=== PATIENT | female | born 1960 | race Hispanic/Latino ===

== ENCOUNTER 2017-05-06 12:41 | Outpatient (CLI) | payer BC ==
--- NOTE | 2017-05-06 14:23 | MRI ---
EXAM: THORACIC SPINE MRI WITHOUT CONTRAST: HISTORY: Thoracic radiculopathy. Increased low back pain. Bilateral arm weakness. The patient fell a year a go. COMPARISON: None. TECHNIQUE: Thoracic spine MRI is performed without intravenous Gadolinium administration. Multisequential, mult iplanar imaging is performed. FINDINGS: There is appropriate T1 marrow signal intensity of the thoracic vertebrae. Vertebral body height is maintained. There is no fracture. There is osseous hemangioma at T4. No significant STIR hyperinte nsity to suggest edema or ligamentous injury. There is appropriate signal intensity in visualized mediastinal structures and lung parenchyma. Visu alized solid organs are unremarkable. Conus medullaris terminates at the superior end plate of L1. The thoracic aorta has an overall normal size and signal intensity. Throughout the thoracic spine, there is no significant central canal stenosis. The neural foramina a re patent. IMPRESSION: No significant central canal stenosis. Neural foramen are patent. POS: [facility]
--- NOTE | 2017-05-06 14:30 | MRI ---
LUMBAR SPINE MRI WITHOUT CONTRAST: Date: 05/06/17 COMPARISON: 04/28/17. 01/26/17. HISTORY: Lumbar radiculopathy. Increasing back pain. Weakness. TECHNIQUE: Lumbar spine MRI is performed without intravenous Gadolinium administration. Multisequential, multipl zoë imaging is performed. FINDINGS: There is appropriate T1 marrow signal intensity of the lumbar vertebra. Lumbar spine vertebral body h eight is maintained. There is no fracture. There is intrinsic T1 and T2 hyperintensity involving the T12 and L1 vertebral bodies, compatible with osseous hemangiomas. No significant STIR hyperintensity to suggest edema or ligamentous injury. Symmetric attenuation of the psoas muscles. Conus medullaris terminates at the superior end late of L1. Appropriate signal intensity of the visualized solid organs. T12-L1: Adequate disc hydration. No significant central canal stenosis. Foramina are patent. L1-L2: Adequate disc hydration. No significant central canal stenosis. Foramina are patent. L2-L3: Adequate disc hydration. No significant central canal stenosis. Neural foramina are patent. L3-L4: Minimal disc desiccation. Minimal loss of disc space height. There is a generalized disc bulge. Minim ally narrowing of left subarticular zone. Disc material abuts but does not obscure the traversing lef t L4 nerve root. Right subarticular zone is unremarkable. There is no significant central canal steno sis. Right neural foramen is patent. Moderate left foraminal narrowing predominantly due to disc mate rial. L4-L5: Adequate disc hydration. No significant central canal stenosis. Neural foramina are patent. L5-S1: No significant posterior disc abnormality. No significant central canal stenosis. Neural foramina are patent. IMPRESSION: Degenerative changes of lumbar spine as detailed above. When compared to the prior examination, there is essentially stable left foraminal narrowing at L3-L4. POS: [facility]
== END 2017-05-06 12:42 | disposition home or self-care (01) ==
LOC: TBSIIMAG 12:41
PROVIDERS: ATTEND Neurological Surgery
DX: M47.26 Other spondylosis with radiculopathy, lumbar region (principal); M54.14 Radiculopathy, thoracic region; M99.53 Intervertebral disc stenosis of neural canal of lumbar region
CPT/HCPCS: 72146; 72148

== ENCOUNTER 2017-05-31 09:00 | Outpatient (CLI) | payer BC ==
[2017-05-31 14:54] LABS: Hematocrit 40.8 % (36.0-47.0); Mean Platelet Volume 9.3 fL (7.4-10.4); Red Blood Cell (RBC) Count 4.43 mill/uL (4.20-5.40); White Blood Cell (WBC) Count 5.6 thou/uL (4.8-10.8)
[2017-05-31 15:10] LABS: Anion Gap 7 mmol/L (10-20); BUN (Urea Nitrogen) 15 mg/dL (9.8-20.1); Calc. Creatinine Clearance 0 mL/min (70-130); Calcium 9.4 mg/dL (7.8-10.44); Carbon Dioxide 30 mmol/L (22-29); Chloride 105 mmol/L (98-107); Estimated GFR-MDRD Greater than 90
== END 2017-05-31 09:01 | disposition home or self-care (01) ==
LOC: LABBT 09:00
PROVIDERS: ATTEND Neurological Surgery
DX: Z01.818 Encounter for other preprocedural examination (principal); M54.16 Radiculopathy, lumbar region
CPT/HCPCS: 80048; 85027; 93005; 93010

== ENCOUNTER 2017-06-06 06:49 | Day surgery (SDC) | payer BC ==
[2017-05-31 11:33] VITALS: BMI 33.6
[2017-06-06] MEDS ORDERED: CEFAZOLIN/Water 2 GM/20 ML SYRINGE ONE (07:39)
[2017-06-06] MEDS ORDERED: Midazolam HCl 2 mg/2 ml Vial ONE ×2 (08:19→08:43)
[2017-06-06] MEDS ORDERED: Fentanyl 100 MCG/2 ML VIAL ONE ×3 (08:43→10:32)
[2017-06-06] MEDS ORDERED: Sodium Chloride 0.9% 10 ML ONE (08:44)
[2017-06-06] MEDS ORDERED: Propofol 200 MG/20 ML VIAL ONE (09:00)
[2017-06-06] MEDS ORDERED: PHENYLEPHRINE-NS 100 MCG/ML 10 ML SYRINGE ONE (09:00)
[2017-06-06] MEDS ORDERED: ePHEDrine/0.9% NaCl/PF SYRINGE 50 mg/10 ml ONE (09:00)
[2017-06-06] MEDS ORDERED: Lidocaine 1% PF 5 ML VIAL ONE (09:00)
[2017-06-06] MEDS ORDERED: Glycopyrrolate 0.2 MG/ML 5 ML SYRINGE ONE (09:00)
[2017-06-06] MEDS ORDERED: Ondansetron HCl/PF 4 MG/2 ML Vial ONE (09:00)
[2017-06-06] MEDS ORDERED: Dexamethasone 20 MG/5 ML VIAL ONE (09:00)
--- NOTE | 2017-06-06 10:16 | OP ---
DATE OF PROCEDURE: 06/06/2017 SURGEON: Miguel Esquivel M.D. BODY ARTIST: Rafat Tobias PA-C PROCEDURES: Left L3-4 laminectomy, facetectomy, foraminotomy, interbody arthrodesis, intravertebral biomechanical device, local morselized autograft, demineralized bone matrix, posterior lateral arthro desis and pedicle screw instrumentation L3-4. PROCEDURE IN DETAIL: The patient was brought into the operating room, intubated. She was rolled in the prone position on gel-filled chest rolls. Incision made exposing L3-4 and our level was confirme d by x-ray. We performed complete left L3-4 laminectomy, facetectomy, and foraminotomy and completel y decompressed left L3 and left L4. The disc itself was incised and debrided and a complete discecto my was performed. The bony endplates were decorticated for the purpose of arthrodesis and appropriat daniel sized intravertebral biomechanical PEEK device was brought into the field, filled with deminerali zed bone matrix and local morselized autograft, and tapped into place securely at L3-4. Next, pedicl e screws were placed at left L3 and left L4 using lateral fluoroscopic guidance and the positioning w as confirmed with rotational x-ray. A haja was secured between the screws, connected by nuts which we re final tightened. The wound was then extensively irrigated, immaculate hemostasis was secured. Va ncomycin powder was applied and the wound was closed in anatomic layers.
[2017-06-06] MEDS ORDERED: HYDROmorphone 0.5 MG/0.5 ML SYRINGE ONE (11:12)
[2017-06-06] MEDS ORDERED: Morphine 4 MG/ML VIAL ONE (11:52)
[2017-06-06] MEDS ORDERED: HYDROcodone/Acetaminophen 5/325 mg Tablet ONE (14:38)
== END 2017-06-06 16:53 | disposition home or self-care (01) ==
LOC: SDC 06:49
PROVIDERS: ATTEND Neurological Surgery
PROC: 0SG00AJ Fusion of Lumbar Vertebral Joint with Interbody Fusion Device, Posterior Approach, Anterior Column, Open Approach (ICD-10-PCS; principal; 2017-06-06)
DX: M54.16 Radiculopathy, lumbar region (principal); Z79.899 Other long term (current) drug therapy; Z98.51 Tubal ligation status; Z90.710 Acquired absence of both cervix and uterus; Z90.49 Acquired absence of other specified parts of digestive tract; Z98.890 Other specified postprocedural states
CPT/HCPCS: 76001; 96374; A4216; C1713; C1768; J1100; J1170; J2001; J2250; J2270; J2405; J2704; J3010; J3370; J3490

== ENCOUNTER 2017-06-13 07:45 | Emergency (ER) | payer BC ==
[2017-06-13] MEDS ORDERED: Morphine 4 MG/ML VIAL ONE (08:37)
[2017-06-13] MEDS ORDERED: Lorazepam 2 MG/ML VIAL ONE (08:37)
== END 2017-06-13 09:12 | disposition home or self-care (01) ==
LOC: ERS 07:45
DX: G89.18 Other acute postprocedural pain (principal); M54.9 Dorsalgia, unspecified; K21.9 Gastro-esophageal reflux disease without esophagitis
CPT/HCPCS: 96372; J2060; J2270

== ENCOUNTER 2017-06-23 10:32 | Outpatient (CLI) | payer BC ==
--- NOTE | 2017-06-23 11:01 | RAD ---
TWO VIEWS LUMBAR SPINE: Date: 06-23-17 Comparison: 08-31-16 History: Left leg pain and numbness, lumbar radiculopathy, left leg pain from knee down. FINDINGS: Five lumbar type vertebral bodies are present with intact pedicles on frontal imaging. There are post -operative clips noted in the right upper quadrant. There is a left sided pedicle screw at the L3 and L4 level with a vertically oriented interlocking ro d. There is an intervertebral disc device at L3-4. There is anterior osteophyte formation at L3-4 as well. There is no anterolisthesis or retrolisthesis. There is mild facet hypertrophy at L3-4 and L4-5 . No acute osseous abnormality. IMPRESSION: Post-operative and degenerative change noted within the lumbar spine as detailed above. POS: [facility]
== END 2017-06-23 10:33 | disposition home or self-care (01) ==
LOC: TBSIIMAG 10:32
PROVIDERS: ATTEND Neurological Surgery
DX: M47.26 Other spondylosis with radiculopathy, lumbar region (principal); Z98.890 Other specified postprocedural states
CPT/HCPCS: 72100

== ENCOUNTER 2017-08-02 15:38 | Outpatient (CLI) | payer BC ==
--- NOTE | 2017-08-02 16:16 | RAD ---
LUMBAR SPINE TWO VIEWS: History: Lumbar radiculopathy. Comparison: 06-23-17 FINDINGS: Posterior spinal fusion at L3-4. Disc spaces are unchanged. No acute fracture, no malalignment, no listhesis. IMPRESSION: Unchanged examination. No evidence for hardware failure. POS: [facility]
== END 2017-08-02 15:39 | disposition home or self-care (01) ==
LOC: TBSIIMAG 15:38
PROVIDERS: ATTEND Neurological Surgery
DX: M54.16 Radiculopathy, lumbar region (principal)
CPT/HCPCS: 72100

== ENCOUNTER 2017-10-06 10:34 | Outpatient (CLI) | payer BC ==
--- NOTE | 2017-10-06 12:34 | RAD ---
LUMBAR SPINE 2 VIEWS: HISTORY: A 57-year-old female with a history of other intervertebral disk disease lumbar region, low back pain . COMPARISON: 08/02/17. FINDINGS: Left-sided pedicle screws are noted at L3-L4 with intradiskal prosthesis. No evidence for significan t malalignment. Stable from prior 08/02/17 study. IMPRESSION: Stable left-sided pedicle screws at L3-L4 with intradiskal prosthesis. No significant malalignment. Unchanged from prior exam. POS: [facility]
== END 2017-10-06 10:35 | disposition home or self-care (01) ==
LOC: TBSIIMAG 10:34
PROVIDERS: ATTEND Neurological Surgery
DX: M51.36 Other intervertebral disc degeneration, lumbar region (principal); Z98.1 Arthrodesis status
CPT/HCPCS: 72100

== ENCOUNTER 2017-10-27 10:23 | Outpatient (CLI) | payer BC ==
--- NOTE | 2017-10-27 14:01 | RAD ---
3 VIEWS LUMBAR SPINE: Date: 10/27/17 COMPARISON: 10/06/17. HISTORY: New onset left-sided pain. Surgery in May. FINDINGS: There are five lumbar-type vertebral bodies. In the neutral position. No significant spondylolisthesi s. There is a unilateral left-sided transpedicular screw at L3 and L4, without perihardware lucency. Disc prosthesis at L3-L4 level. Upon extension and flexion, there is normal translational motion. IMPRESSION: Uncomplicated lumbar fusion changes as above. No significant spondylolisthesis. POS: [facility]
--- NOTE | 2017-10-27 15:22 | MRI ---
MRI LUMBAR SPINE WIT AND WITHOUT CONTRAST: HISTORY: Intervertebral disk degeneration. New-onset left-sided lower back pain. Status post surgery. COMPARISON: None. TECHNIQUE: MRI of the lumbar spine is performed without intravenous Gadolinium administration. Multisequential, multiplanar imaging is performed. FINDINGS: Appropriate T1 marrow signal intensity of the lumbar vertebrae. Vertebral body height is maintained. No fracture. No significant STIR hyperintensity to suggest vertebral body edema or ligamentous inj ury. No abnormal enhancement of the vertebral bodies. No abnormal enhancement within the thecal sac including the cauda equina and conus medullaris. Unilateral left transpedicular screw at L3 and L4 is identified. There is associated metallic suscep tibility artifact. There is a prosthesis at the L3-L4 disk space. Symmetric signal intensity of the psoas muscles. Appropriate signal intensity of the visualized tom d organs. Conus medullaris terminates at the T12-L1 disk space. T12-L1: Adequate disk hydration. No significant central canal stenosis or foraminal narrowing. L1-L2: Adequate disk hydration. No significant central canal stenosis or foraminal narrowing. L2-L3: Appropriate disk hydration. No significant posterior disk abnormality. No significant centr al canal stenosis. Neural foramen are patent. L3-L4: There is a disk prosthesis. There does appear to be some residual disk material. There appe ars to be enhancing scar tissue along the left lateral aspect of the disk, extending into the left ne ural foramen and abutting the foraminal left L3 nerve root. No significant stenosis of the thecal sa c. Right neural foramen is patent. Overall, there is moderate left foraminal narrowing presumed to be due to scar tissue. L4-L5: Adequate disk hydration. A generalized disk bulge, ligamentum flavum thickening, and facet h ypertrophy do not cause any significant central canal stenosis. Mild right and left foraminal narrow ing. L5-S1: Adequate disk hydration. No significant central canal stenosis. Mild bilateral foraminal na rrowing. IMPRESSION: Postsurgical changes of the lumbar spine as above. No significant central canal stenosis. There yissel ears to be enhancing scar tissue along the left aspect of the disk at L3-L4. Enhancing scar tissue a buts the foraminal left L3 nerve roots. POS: [facility]
== END 2017-10-27 10:24 | disposition home or self-care (01) ==
LOC: TBSIIMAG 10:23
PROVIDERS: ATTEND Neurological Surgery
DX: M51.36 Other intervertebral disc degeneration, lumbar region (principal); Z98.1 Arthrodesis status; Z98.890 Other specified postprocedural states
CPT/HCPCS: 72100; 72158; 82565

== ENCOUNTER 2017-11-10 10:41 | Outpatient (CLI) | payer BC ==
--- NOTE | 2017-11-10 12:56 | CT ---
LUMBAR SPINE CT WITHOUT CONTRAST: Date: 11-10-17 Comparison: None. History: Low back pain, prior lumbar surgery. Technique: Serial axial CT imaging obtained at 3 mm intervals through the lumbar spine without contra st. Coronal and sagittal reformatted imaging obtained. FINDINGS: Evaluation for central canal and/or neural foraminal stenosis is limited on routine CT. Vertebral body height and alignment appears normal on the sagittal reformatted imaging. Left sided pedicle screws are present at L3 and L4 with a vertically oriented interlocking haja. There is an intervertebral disc device at L3-4 as well. T12-L1: No osseous cause of significant central canal or neural foraminal stenosis. L1-2: No osseous cause of significant central canal or neural foraminal stenosis. L2-3: Mild bilateral facet hypertrophy with no osseous cause of significant central canal or neural f oraminal stenosis. L3-4: Post-operative hardware is present as detailed above. The patient appears status post left side d facetectomy. There is no osseous cause of significant central canal or right neural foraminal stenosis. There is s oft tissue density in the left neural foramen, best seen on sagittal image 48 which could be related to scar and/or disc material causing associated left neural foraminal stenosis. L4-5: No osseous cause of significant central canal or neural foraminal stenosis. There is a rim calcified soft tissue density which measures 1.6 cm in AP dimension and 1.9 cm in alegria sverse dimension. It abuts the right aspect of the transverse process of the L3 vertebral body and wa s not present on the 08-31-16 pre-operative CT examination. Perhaps this is related to bone graft mate rial. Clinical correlation is essential. L5-S1: No osseous cause of significant central or neural foraminal stenosis. No acute fracture or dislocation. Imaged retroperitoneal structures demonstrate no acute findings. IMPRESSION: Post-operative and degenerative changes as described above. Probable neural foraminal stenosis on the left. Rim calcified soft tissue density to the right of the L3 spinous process may be related to bon e graft material which is partially calcified. Clinical correlation is required. POS: [facility]
== END 2017-11-10 10:42 | disposition home or self-care (01) ==
LOC: TBSIIMAG 10:41
PROVIDERS: ATTEND Neurological Surgery
DX: M51.36 Other intervertebral disc degeneration, lumbar region (principal); Z98.890 Other specified postprocedural states
CPT/HCPCS: 72131

== ENCOUNTER 2018-02-15 22:43 | Emergency (ER) | payer BC ==
[2018-02-15] MEDS ORDERED: Fluorescein Opthalmic Strip ONE (23:42)
[2018-02-15] MEDS ORDERED: Proparacaine 0.5% Opth 15 ML BOT ONE (23:42)
== END 2018-02-16 00:10 | disposition home or self-care (01) ==
LOC: ERS 22:43
DX: H11.32 Conjunctival hemorrhage, left eye (principal); K21.9 Gastro-esophageal reflux disease without esophagitis; I10 Essential (primary) hypertension; F41.9 Anxiety disorder, unspecified; Z79.899 Other long term (current) drug therapy
CPT/HCPCS: 99282

== ENCOUNTER → 2018-02-27 | Day surgery (SDC) | payer BC ==
[2018-02-24 10:50] VITALS: BMI 30.6
[2018-02-27 10:32] VITALS: TEMP 97.5
--- NOTE | 2018-02-27 12:06 | CT ---
POST MYELOGRAM LUMBAR SPINE CT: Date: 02/27/18 HISTORY: Low back pain, radiating down right leg, into the heel and left groin. COMPARISON: None. CORRELATION: Noncontrast lumbar spine CT dated 11/14/17, lumbar spine MRI dated 10/27/17. TECHNIQUE: Post myelogram lumbar spine CT is performed in the axial plane. Sagittal and coronal reformatted imag es are submitted for interpretation. FINDINGS: There are unilateral left-sided transpedicular screw at L3 and L4. No perihardware lucency. Disc pros thesis at L3-L4. There are five lumbar-type vertebral bodies. Vertebral body height is maintained. No fracture. No spondylolisthesis or spondylolysis. Surgically absent gallbladder. Heterogeneous appearing right kidney. Findings are similar to previous examination. Correlation made with stone protocol CT of 08/31/16 does not demonstrate any appreciabl e change. No retroperitoneal mass, lymphadenopathy, or hematoma. Symmetric attenuation of psoas muscl es. Conus medullaris terminates at the mid L1 level. T11-T12 and T12-L1: No significant central canal stenosis or neural foraminal narrowing. L1-L2: No significant central canal stenosis or neural foraminal narrowing. L2-L3: No significant central canal stenosis or neural foraminal narrowing. L3-L4; There is a disc prosthesis. No significant central canal stenosis. Right neural foramen is patent. Th ere is partial resection of the superior left facet at L4. There is moderate central canal stenosis w ith abnormal soft tissue attenuation noted in the left neural foramen. L4-L5: Minimal generalized disc bulge. No significant central canal stenosis. Neural foramina are patent. L5-S1: No significant central canal stenosis. Patient neural foramina bilaterally. Partially calcified density to the right of the spinous process at L3 and L4 are likely representing bone graft material. IMPRESSION: Postsurgical changes as above. Moderate left foraminal narrowing at L3-L4 with soft tissue density li nicholas representing postsurgical scar tissue and/or disc material. POS: [facility]
--- NOTE | 2018-02-27 12:10 | RAD ---
LUMBAR MYELOGRAM: Date: 02/27/18 HISTORY: Lumbar radiculopathy. EXPOSURE: 71.1 mGy*cm^2. 0.4 minutes. 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 There is a disc prosthesis at L3-L4. Vertebral body height is maintained. No fracture. No sig nificant spondylolisthesis or spondylolysis. There are five lumbar-type vertebral bodies. Successful lumbar puncture for intrathecal contrast administration. Total of 9 mL of Isovue M200 cont rast was administered intrathecally. The patient tolerated the procedure well. No immediate or postpr ocedure complications. TECHNIQUE: Consent obtained to perform a lumbar puncture under fluoroscopic guidance for lumbar myelogram. The L 4-L5 level was deemed appropriate. Skin was prepped and draped in the sterile fashion. 1% lidocaine, buffered with sodium bicarbonate, was used for local anesthesia. Under fluoroscopic guidance, a 22 ga uge spinal needle was advanced into the CSF space. Inner stylette was removed. Prompt flow of clear C SF into the hub of the needle. Via a short tubing catheter, a total of 9 mL Isovue M200 contrast was administered intrathecally. The patient tolerated the procedure well. No immediate or postprocedure complication. IMPRESSION: Successful lumbar myelogram. POS: [facility]
== END ==
LOC: RAD 09:37
PROVIDERS: ATTEND Neurological Surgery
PROC: B02B1ZZ Computerized Tomography (CT Scan) of Spinal Cord using Low Osmolar Contrast (ICD-10-PCS; principal; 2018-02-27)
DX: M54.16 Radiculopathy, lumbar region (principal); M48.061 Spinal stenosis, lumbar region without neurogenic claudication; Z79.899 Other long term (current) drug therapy; Z98.1 Arthrodesis status
CPT/HCPCS: 62304; 72132

== ENCOUNTER 2019-04-09 09:46 | Outpatient (CLI) | payer BC ==
--- NOTE | 2019-04-13 14:28 | MMO ---
Bilateral MAMMO Bilat Screen [facility]. CLINICAL HISTORY: Patient is 58 years old and is seen for screening. The patient has no family history of breast cancer. The patient has no personal history of cancer. The patient has a history of left Excisional Biopsy in Early 40's - benign - scar not visible. VIEWS: The views performed were: bilateral craniocaudal with tomosynthesis and bilateral mediolateral oblique with tomosynthesis. FILMS COMPARED: The present examination has been compared to prior imaging studies performed at 07/09/2014, and at [facility] on 10/14/2015. This study has been interpreted with the assistance of computer-aided detection. MAMMOGRAM FINDINGS: There are scattered fibroglandular densities. There are no suspicious masses, suspicious calcifications, or new areas of architectural distortion. IMPRESSION: THERE IS NO MAMMOGRAPHIC EVIDENCE OF MALIGNANCY. A ROUTINE FOLLOW-UP MAMMOGRAM IN 1 YEAR IS RECOMMENDED. THE RESULTS OF THIS EXAM WERE SENT TO THE PATIENT. ACR BI-RADS Category 1 - Negative MAMMOGRAPHY NOTE: 1. A negative mammogram report should not delay a biopsy if a dominant of clinically suspicious mass is present. 2. Approximately 10% to 15% of breast cancers are not detected by mammography. 3. Adenosis and dense breasts may obscure an underlying neoplasm. Reported by: ADAM ARIAS MD Electonically Signed: [id number]
== END 2019-04-09 09:47 | disposition home or self-care (01) ==
LOC: BICMAMMO 09:46
PROVIDERS: ATTEND Family Medicine Sports Medicine
DX: Z12.31 Encounter for screening mammogram for malignant neoplasm of breast (principal); Z91.89 Other specified personal risk factors, not elsewhere classified
CPT/HCPCS: 77063; 77067

== ENCOUNTER 2019-12-14 15:24 | Outpatient (CLI) | payer BC ==
--- NOTE | 2019-12-14 15:58 | ULT ---
Exam: Left soft tissue neck ultrasound HISTORY: Mass COMPARISON: none FINDINGS: In the left neck, 1.6 cm lymph node is noted in the region of pain. No solid masses. IMPRESSION: Left neck lymph node. Better interrogation with postcontrast soft tissue neck CT is recom mended.
== END 2019-12-14 15:25 | disposition home or self-care (01) ==
LOC: BICULT 15:24
PROVIDERS: ATTEND Family Medicine Sports Medicine
DX: R59.0 Localized enlarged lymph nodes (principal)
CPT/HCPCS: 76536

== ENCOUNTER 2019-12-28 12:48 | Outpatient (CLI) | payer BC ==
[2019-12-28] MEDS ORDERED: Iopamidol-370 76% 500 ML 1 ML ONE (14:36)
--- NOTE | 2019-12-28 14:59 | CT ---
SOFT TISSUE NECK CT WITHOUT CONTRAST: 12/28/19 COMPARISON: None. CORRELATION: Ultrasound of the neck 12/14/19. HISTORY: Left neck mass. Region of concern has been marked. FINDINGS: The visualized brain parenchyma has appropriate enhancement. Appropriate attenuation of the visualized paraspinal muscles. Bilateral ocular lenses are appropriately located. Both globes are intact. Retrobulbar fat is preserv ed. Symmetric attenuation of the optic nerves and ocular rectus muscles. Limited evaluation of the oral cavity due to dental amalgam artifact. No obvious masses. Midline fat ty raphae of the tongue is preserved. The supraglottic, glottic, and subglottic larynx have appropria te attenuation. Epiglottis has a normal caliber. Pre-epiglottic fat is preserved. Symmetric attenuation of the parotid glands and submandibular glands. Hypodensity in the left thyroid lobe, measuring 2.2 x 1.8 cm. Isodense to slightly hypodense focus in the anterior right thyroid lob e measures 0.8 cm. Symmetric attenuation of the paraspinal muscles. Grossly, the great vessels of the neck are patent. No evidence of lymphadenopathy by size criteria. Previously suggested lymph nodes on ultrasound are l ess evident on the current examination. There is an upper normal right level II lymph node measuring 1.1 x 0.6 cm and an upper normal left level II lymph node measuring 1.1 x 0.8 cm. Additional nonenlar ged bilateral level V lymph nodes are noted. Cervical spine vertebral body heights are maintained. There is no fracture. There are varying degrees of central canal stenosis and foraminal narrowing on the basis of degenerative change. No acute abnormality in the upper mediastinum or lung apices. At the level of palpable marker, no solid or cystic masses. No lymphadenopathy. IMPRESSION: 1. No abnormality at the level of palpable marker along the left aspect of the neck. 2. No evidence of lymphadenopathy by size criteria. There is upper normal right level II and left lev el II lymph nodes. These lymph nodes measure 1.1 x 0.6 cm and 1.1 x 0.8 cm respectively. 3. Hypodense nodule in the right thyroid lobe, incompletely evaluated. Thyroid ultrasound is recommen ded. POS: [facility]
== END 2019-12-28 12:49 | disposition home or self-care (01) ==
LOC: BICCT 12:48
PROVIDERS: ATTEND Otolaryngology Plastic Surgery within the Head & Neck
DX: R22.1 Localized swelling, mass and lump, neck (principal); E04.1 Nontoxic single thyroid nodule
CPT/HCPCS: 70491; Q9967

== ENCOUNTER 2020-08-14 10:44 | Outpatient (CLI) | payer BC ==
--- NOTE | 2020-08-14 13:16 | ULT ---
Thyroid ultrasound: 08/14/2020 COMPARISON: None HISTORY: Thyroid nodule TECHNIQUE: Multiplanar grayscale sonographic imaging of the thyroid gland obtained. FINDINGS: The isthmus measures 4 mm, the right lobe measures 4.6 x 1.5 x 2.0 cm and the left lobe bee sures 4.2 x 1.7 x 1.4 cm. Three nodules are present within the right lobe. This includes a mildly complex cyst measuring 6 x 4 mm superiorly, a 3 mm hypoechoic lesion laterally within the inferior right lobe, and a complex solid and cystic nodule within the inferior right lobe measuring 1.1 x 0.7 x 0.6 cm. There is a 1.0 x 0.9 x 1.1 cm heterogeneously hypoechoic solid nodule within the midportion of the le ft lobe. IMPRESSION: TI-RADS category 4-moderately suspicious. Given nodule size, follow-up in one year advis ed.
== END 2020-08-14 10:45 | disposition home or self-care (01) ==
LOC: BICULT 10:44
PROVIDERS: ATTEND Otolaryngology Plastic Surgery within the Head & Neck
DX: E04.1 Nontoxic single thyroid nodule (principal)
CPT/HCPCS: 76536

== ENCOUNTER 2020-11-05 09:55 | Outpatient (CLI) | payer BC | END 2020-11-05 09:56 | disposition home or self-care (01) | LOC: BICMAMMO 09:55 | PROVIDERS: ATTEND Family Medicine Sports Medicine | DX: Z12.31 Encounter for screening mammogram for malignant neoplasm of breast (principal) | CPT/HCPCS: 77063; 77067 ==

== ENCOUNTER 2021-09-21 09:07 | Emergency (ER) | payer BC ==
[2021-09-21 10:14] LABS: #Lymphocytes 1.4 thou/uL (1.20-3.40); #Monocytes 0.4 thou/uL (0.11-0.59); #Neutrophils 3.8 thou/uL (1.40-6.50); %Basophils 0.4 % (0.0-1.0); %Eosinophils 0.5 % (0.0-10.0); %Lymphocytes 24.4 % (21.0-51.0); %Monocytes 7.1 % (0.0-10.0); %Neutrophils 67.6 % (42.0-75.0); Hemoglobin 13.1 g/dL (12.0-16.0); Mean Corpuscular HGB CONC 31.8 g/dL (32.0-36.0); Mean Corpuscular Hemoglobin 29.3 pg (27.0-31.0); Mean Corpuscular Volume 92.2 fL (78.0-98.0); Mean Platelet Volume 8.6 fL (7.4-10.4); Platelet Count 221 thou/uL (130-400); RBC Distribution Width 12.5 % (11.5-14.5); Red Blood Cell (RBC) Count 4.48 mill/uL (4.20-5.40); White Blood Cell (WBC) Count 5.5 thou/uL (4.8-10.8)
[2021-09-21 10:51] LABS: ALT (SGPT) 13 U/L (8-55); AST (SGOT) 18 U/L (5-34); Albumin 3.9 g/dL (3.5-5.0); Alkaline Phosphatase 115 U/L (40-110); Anion Gap 9 mmol/L (10-20); BUN (Urea Nitrogen) 22 mg/dL (9.8-20.1); Bilirubin, Total 0.3 mg/dL (0.2-1.2); Calc. Creatinine Clearance 0 mL/min (70-130); Carbon Dioxide 27 mmol/L (22-29); Chloride 106 mmol/L (98-107); Globulin 2.9 g/dL (2.4-3.5); Glucose 107 mg/dL (70-105); Lipase 22 U/L (8-78); Potassium 4.4 mmol/L (3.5-5.1); Protein, Total 6.8 g/dL (6.0-8.3); Sodium 138 mmol/L (136-145)
[2021-09-21] MEDS ORDERED: Ketorolac Tromethamine 30 MG/ML VIAL ONE (11:13)
== END 2021-09-21 11:39 | disposition home or self-care (01) ==
LOC: ERS 09:07
DX: R07.89 Other chest pain (principal); I10 Essential (primary) hypertension; K21.9 Gastro-esophageal reflux disease without esophagitis
CPT/HCPCS: 36415; 71045; 80053; 83690; 84484; 85025; 93005; 96374; J1885

== ENCOUNTER 2021-11-19 12:39 | Outpatient (CLI) | payer BC | END 2021-11-19 12:40 | disposition home or self-care (01) | LOC: BICMAMMO 12:39 | PROVIDERS: ATTEND Family Medicine Sports Medicine | DX: Z12.31 Encounter for screening mammogram for malignant neoplasm of breast (principal); Z91.89 Other specified personal risk factors, not elsewhere classified | CPT/HCPCS: 77063; 77067 ==

== ENCOUNTER 2023-05-23 07:35 | Outpatient (CLI) | payer BC ==
[2023-05-23] MEDS ORDERED: Iopamidol 370 76% 100 ML VIAL ONE (09:24)
== END 2023-05-23 07:36 | disposition home or self-care (01) ==
LOC: BICCT 07:35
PROVIDERS: ATTEND Internal Medicine Gastroenterology
DX: R10.13 Epigastric pain (principal); R63.4 Abnormal weight loss; R10.32 Left lower quadrant pain; Z86.010 Personal history of colon polyps
CPT/HCPCS: 74177; Q9967

== ENCOUNTER 2024-05-28 17:45 | Emergency (ER) | payer BC | END 2024-05-28 18:33 | disposition left against medical advice (07) | LOC: ERS 17:45 | DX: Z53.21 Procedure and treatment not carried out due to patient leaving prior to being seen by health care provider (principal) ==

== ENCOUNTER 2024-07-09 15:55 | Emergency (ER) | payer BC ==
[2024-07-09] MEDS ORDERED: Acetaminophen 500 MG TAB ONE (16:44)
== END 2024-07-09 16:51 | disposition home or self-care (01) ==
LOC: ERS 15:55
DX: J11.1 Influenza due to unidentified influenza virus with other respiratory manifestations (principal)
CPT/HCPCS: 87428; 99284

== ENCOUNTER 2024-08-01 14:18 | Outpatient (CLI) | payer BC | END 2024-08-01 14:19 | disposition home or self-care (01) | LOC: BICMRI 14:18 | PROVIDERS: ATTEND Family Medicine Sports Medicine | DX: M77.8 Other enthesopathies, not elsewhere classified (principal); M75.92 Shoulder lesion, unspecified, left shoulder; M67.814 Other specified disorders of tendon, left shoulder; S43.432A Superior glenoid labrum lesion of left shoulder, initial encounter ==

== ENCOUNTER 2025-02-01 15:00 | Outpatient (CLI) | payer BC | END 2025-02-01 15:01 | disposition home or self-care (01) | LOC: BICMAMMO 15:00 | PROVIDERS: ATTEND Family Medicine Sports Medicine | DX: Z12.31 Encounter for screening mammogram for malignant neoplasm of breast (principal); Z91.89 Other specified personal risk factors, not elsewhere classified | CPT/HCPCS: 77063; 77067 ==